=== PATIENT | male | born 1960 | race Caucasian/White ===

== ENCOUNTER 2021-06-02 22:08 | Emergency (ER) | payer OTHER ==
[2021-06-02 22:14] VITALS: BP 160/80; TEMP 98.9; BMI 29.0
[2021-06-02] MEDS ORDERED: ASPIRIN 325 MG TABLET PO ONE (23:01)
[2021-06-02] MEDS ORDERED: ASPIRIN 81 MG CHEWABLE TABLETS ONE (23:22)
[2021-06-02 23:23] LABS: BASO % 0.5 % (0-2.0); EOS % 2.4 % (0-4.5); HEMATOCRIT 39.4 % (35.4-49); HEMOGLOBIN 13.7 GM/dL (11.7-16.9); LYMPH % 28.7 % (8-40); MCH 28.2 pg (25.7-33.7); MCHC 34.9 g/dl (32.0-35.9); MEAN CELL VOLUME 80.8 fl (80-96); MEAN PLT VOLUME 7.1 fl (7.5-11.1); MONO % 9.3 % (3.8-10.2); NEUT % 59.1 % (42.8-82.8); PLATELET COUNT 175 10^3/uL (134-434); RBC 4.87 M/mm3 (4.00-5.60); RDW 13.1 % (11.9-15.9)
[2021-06-02 23:30] LABS: INR 1.06 (0.83-1.09); PROTHROMBIN TIME (PATIENT) 12.4 SEC (9.7-13.0)
[2021-06-03 00:02] LABS: CHLORIDE 102 mmol/L (98-107); SODIUM 137 mmol/L (136-145)
[2021-06-03 00:05] LABS: CALCIUM 8.3 mg/dL (8.5-10.1)
[2021-06-03 00:06] LABS: ALBUMIN 3.7 g/dl (3.4-5.0); ANION GAP 7 MMOL/L (8-16); CO2 29 mmol/L (21-32); GLUCOSE,RANDOM 370 mg/dL (74-106)
[2021-06-03 00:09] LABS: SGOT/AST 10 U/L (15-37); SGPT/ALT 22 U/L (13-61)
[2021-06-03 00:11] LABS: BILIRUBIN,TOTAL 0.7 mg/dL (0.2-1); TOT PROT 6.7 g/dl (6.4-8.2)
[2021-06-03 00:12] LABS: ALK PHOS 80 U/L (45-117)
[2021-06-03] MEDS ORDERED: SODIUM CHLORIDE 0.9% 500 ML INFUS.BAG IV ONE (00:43)
[2021-06-03] MEDS ORDERED: INSULIN REGULAR HUMAN 100 UNITS/ML *VIAL IVPUSH ONE (00:43)
[2021-06-03 03:44] VITALS: PULSE 58
== END 2021-06-03 03:49 | disposition home or self-care (01) ==
LOC: JER 22:08
DX: E11.65 Type 2 diabetes mellitus with hyperglycemia (principal)
CPT/HCPCS: 36415; 71046-TC-FY; 71250-TC; 80053; 82550; 82962; 84484; 85025; 85610; 93005; 93010; 99284-25; C9803; U0003; U0005